=== PATIENT | female | born 1995 | race Hispanic/Latino ===

== ENCOUNTER 2018-08-10 00:07 | Inpatient (IN) | payer OTHER ==
[2018-08-10] MEDS ORDERED: METHYLERGONOVINE 0.2MG/ML AMP IM PRN (04:12)
[2018-08-10] MEDS ORDERED: MIDAZOLAM HCL 2 MG/2 ML INJ IV PRN (04:12)
[2018-08-10] MEDS ORDERED: Ringers Lactate 1,000 ML IV PRN (04:12)
[2018-08-10] MEDS ORDERED: CARBOPROST TROME 250 MCG/ML IM PRN (04:12)
[2018-08-10] MEDS ORDERED: PROMETHAZINE 25 MG/ML VIAL IM PRN (04:12)
[2018-08-10] MEDS ORDERED: BUTORPHANOL 1 MG/ML INJ IV PRN (04:12)
[2018-08-10] MEDS ORDERED: MEPERIDINE HCL 25 MG/0.5 ML IV PRN (04:12)
[2018-08-10] MEDS ORDERED: OXYTOCIN/LR 20 UNIT/1,000 ML BAG IV SCH ×2 (05:00→17:00)
[2018-08-10] MEDS ORDERED: Ringers Lactate 1,000 ML IV SCH (05:00)
[2018-08-10 05:02] LABS: Absolute Lymphocytes (CBC) 2.3 K/uL (0.7-4.9); Absolute Monocytes 0.8 K/uL (0.1-1.3); Absolute Neutrophil 5.8 K/uL (1.8-8.0); Basophils % 0.3 % (0-1.3); Hematocrit 33.4 % (36.0-45.0); Lymphocytes % 25.2 % (15.3-44.8); MPV 11.4 fL (7.6-11.3); Monocytes % 8.6 % (3.3-12.3); RBC Red Blood Cell Count 3.85 M/uL (3.86-4.86)
[2018-08-10 05:16] VITALS: BMI 31.4
[2018-08-10 05:19] LABS: Urine Appearance CLEAR; Urine Bilirubin NEGATIVE (NEG); Urine Blood NEGATIVE (NEG); Urine Color YELLOW; Urine Glucose NEGATIVE (NEG); Urine Protein TRACE (NEG); Urine Specific Gravity 1.015 (1.005-1.030); Urine Urobilinogen 0.2 mg/dL (0.2-1.0); Urine pH 6.5 (5.0-7.0)
[2018-08-10 05:40] LABS: Urine Microscopic Reflex NO UMIC
[2018-08-10 05:51] LABS: RPR Titer ND
[2018-08-10] MEDS ORDERED: LIDOCAINE 1% MPF 30 ML VIAL ONE (11:35)
--- NOTE | 2018-08-10 14:44 | PREOPHP ---
Date of Admission: 08/10/2018 Shefali is a 22-year-old, 2, para 1, 39 weeks and 2 days. A 2.5 to 3 cm vertex applied. FH Ts are normal and reactive. Amy regularly. Ruptured membranes, clear fluid. Labor talk giv en. Anticipate delivery sometime later today. The patient will probably be requesting epidural anes thesia. This has been discussed fully during the . LUCY/DEMETRIO Voice ID: [id number]
[2018-08-10] MEDS ORDERED: DIPHENHYDRAMINE 25 MG TAB/CAP PO PRN (16:48)
[2018-08-10] MEDS ORDERED: BISACODYL 10 MG RECTAL SUPP RECT PRN (16:48)
[2018-08-10] MEDS ORDERED: DOCUSATE NA/SENNA CONC 1 TAB PO PRN (16:48)
[2018-08-10] MEDS ORDERED: ACETAMINOPHEN 500 MG TAB PO PRN (16:48)
[2018-08-10] MEDS ORDERED: Oxycodone HCl/Acetaminophen 1 TAB TAB PO PRN ×2 (16:48)
--- NOTE | 2018-08-10 17:05 | PN ---
Ms. Penny is eve regularly. She is on 12 milliunits. We just increased it at this point. FHTs are normal, reactive. She has had 1 dose of Stadol IV. She is now 4 cm, but the cervix is sti ll somewhat posterior, about 60-70% effaced now. I think once she gets to 5, she will make more rapi d progress. Full discussion. Right now, she is in good control and is not requesting an epidural at this point. LUCY/DEMETRIO Voice ID: [id number] Report ID: [id number]
--- NOTE | 2018-08-10 17:41 | PN ---
The patient is now on 18 milliunits of Pitocin eve every 2-3 minute. She is 5 to 5.5 cm, 90% effaced, but the baby is occiput posterior. She will start doing pelvic rocks to try to get the bab y to rotate. I think once the baby starts rotating delivery will go much faster. LUCY/DEMETRIO Voice ID: [id number] Report ID: [id number]
[2018-08-10] MEDS: IBUPROFEN 200 MG TAB PO PRN (18:30)
[2018-08-10 21:25] LABS: RPR (Rapid Plasma Reagin) NON-REACT (NON-REACT)
--- NOTE | 2018-08-11 03:58 | OP ---
Surgeon: Musa Martin MD Shefali Penny is a 22-year-old, 2, para 1 at 39 weeks and 1 day, came in for labor inducti on, 2.5 to 3 cm on admission. Rupture of membranes. Used Stadol 1 mg IV, Phenergan 25 mg IM one amanda e during the labor, otherwise used Lamaze breathing techniques. Progressed well after she reached 5 cm. Second stage of about 30-45 minutes. Spontaneous vaginal delivery of an estimated 7.5 pounds ma le , Apgars 9 and 9. Loose nuchal cord. Flynn delivery of the placenta. Estimated blood los s 350 cc. Uterus contracted down well with IV drip Pitocin and massage. Small first-degree lacerati on repaired with 2-0 chromic with local infiltration. The patient tolerated all procedures well. Rh positive, immune to Rubella, and negative beta strep screen. LUCY/DEMETRIO Voice ID: [id number] Report ID: [id number]
--- NOTE | 2018-08-11 15:31 | DS ---
A 22-year-old female, 2, para 1, 39 weeks 1 day, delivered of an estimated 7-pound plus male infant. Apgars 9 and 9. A small first-degree laceration repaired with 2-0 chromic under local infil tration. Flynn delivery of the placenta, which was inspected and noted be intact and normal. A 350 cc blood loss. Estimation nuchal cord x1 noted at time of delivery. Negative Beta strep. Rh posit qamar. Immune to Rubella. ; afebrile, ambulating and voiding. Lochia is normal. She will be dismissed later today to report back to my office in 6 weeks for followup, to report any temperatu re elevation of 100 degrees or greater, severe pain, heavy bleeding, or any other type of abnormaliti es. Dismissed with tramadol for analgesia, although she may elect to take Motrin instead. She has h ad her Tdap immunization. No reports of problems. Final Diagnoses: Term intrauterine , 39 weeks 1 day. Vaginal delivery. Nuchal cord x1. LUCY/DEMETRIO Voice ID: [id number] Report ID: [id number]
[2018-08-11 17:29] VITALS: BP 126/77; TEMP 97.7
[2018-08-11] MEDS: IBUPROFEN 200 MG TAB PO PRN (18:15)
[2018-08-13 04:30] LABS: HBsAG Nonreactive (Nonreactive)
== END 2018-08-11 19:30 | disposition home or self-care (01) | DRG 807 ==
LOC: 2ND-WC 04:08
PROVIDERS: ADMIT Specialist; ATTEND Specialist
PROC: 10E0XZZ Delivery of Products of Conception, External Approach (ICD-10-PCS; principal; 2018-08-11)
PROC: 0HQ9XZZ Repair Perineum Skin, External Approach (ICD-10-PCS; 2018-08-11)
PROC: 10907ZC Drainage of Amniotic Fluid, Therapeutic from Products of Conception, Via Natural or Artificial Opening (ICD-10-PCS; 2018-08-11)
DX: O70.0 First degree perineal laceration during delivery (principal); Z37.0 Single live birth; O69.81X0 Labor and delivery complicated by cord around neck, without compression, not applicable or unspecified; Z3A.39 39 weeks gestation of pregnancy
CPT/HCPCS: 36415; 76805; 81003; 85025; 86592; 86901; 87340; J0595; J2210; J2550; J2590